=== PATIENT | female | born 1945 | race Caucasian/White ===

== ENCOUNTER 2016-10-06 13:30 | Observation (INO) | payer MEDICARE ==
[~2016-10-06] VITALS: Ht 170.2 cm; Wt 83.7 kg
--- NOTE | ~2016-10-06 | ECHO ---
Transthoracic Echocardiography Report (TTE) Demographics Patient Name MEGHNA GONZALEZ Date of Study 10/07/2016 Patient Number [id number] Visit Number [id number] Date of 1945 Room Number G6324 Accession Number [id number] Gender Female Age 71 year(s) Referring Bertha Goldsmith Reverse Unit Operator Doreen Catherine Physician [facility] Reji Osman Physician Interpreting Zheng Felix MD Neighborhood Worker Physician Supervising Ordering Physician Bertha Goldsmith MD/SRIDEVI MARES Nurse Stress Director Of Diversity And Inclusion Conclusions Contractility Score Summary Normal Left Ventricular contractility was noted. Summary The estimated left ventricular ejection fraction is 70-75%. The left ventricle is normal in size . Moderate concentric left ventricular hypertrophy. Diastolic assessment reveals Grade I diastolic dysfunction. The interventricular septum is flattened which is consistent with right ventricular pressure / and or volume overload. Near mid-cavity obliteration with increased gradients seen in the left ventricle. Mildly dilated right ventricle. Mildly reduced right ventricular function. Mild-moderate tricuspid regurgitation by color Doppler. There is severe pulmonary hypertension. The pulmonary pressure (RVSP) is 82 mmHg. Trivial global pericardial effusion. Procedure Type of Study TTE procedure:2D Echocardiogram, M-Mode, Doppler , Color Doppler. Procedure Date Date: 10/07/2016 Start: 07:21 AM Study Location: Inpatient Portable Technical Quality: Limited visualization due to poor acoustical window. Indications:Shortness of breath. Additional Indications:COPD Appropriate Use Criteria: 9 Patient Status: Routine HR: 105 bpm BP: 120/63 mmHg M-Mode/2D Measurements LV Diastolic Dimension: 3.13 cm LV Systolic Dimension: 1.95 cm LV Septum Diastolic: 1.45 cm LV PW Systolic: 0.68 cm LV PW Diastolic: 1.47 cm AO Root Dimension: 3.2 cm Cardiac Output: 8.91 l/min LA Dimension: 3.5 cm LVOT: 2.1 cm LVOT VTI: 24.5 cm RV Base: 4.03 cm LV Stroke volume: 84.82 ml RV Length: 6.49 cm TAPSE: 1.3 cm TDI-S': 15.6 cm/s Doppler Measurements AV Peak Velocity: 1.32 m/s MV Peak E-Wave: 0.52 m/s AV Peak Gradient: 6.97 mmHg MV Peak A-Wave: 1.04 m/s AV Mean Gradient: 5 mmHg MV E/A Ratio: 0.5 LVOT Peak Velocity: 1.3 m/s MV P1/2t: 48 msec TR Gradient:78.85 mmHg PV Peak Velocity: 0.75 m/s Estimated RAP:3 mmHg PV Peak Gradient: 2.26 mmHg Estimated RVSP: 82 mmHg Estimated PASP: 81.85 mmHg E' Septal Velocity: 0.06 m/s A' Septal Velocity: 0.12 m/s E' Lateral Velocity: 0.06 m/s A' Lateral Velocity: 0.12 m/s Findings Left Ventricle The left ventricle is normal in size . Moderate concentric left ventricular hypertrophy. Diastolic assessment reveals Grade I diastolic dysfunction. The interventricular septum is flattened which is consistent with right ventricular pressure / and or volume overload. Near mid-cavity obliteration with increased gradients seen in the left ventricle. Right Ventricle Mildly dilated right ventricle. Mildly reduced right ventricular function. Left Atrium Normal left atrial size. Right Atrium Normal right atrial size. IVC measures 2.04 cm with inspiratory collapse. Mitral Valve Trivial mitral regurgitation by color Doppler. Aortic Valve Normal aortic valve structure and function. Tricuspid Valve Mild-moderate tricuspid regurgitation by color Doppler. There is severe pulmonary hypertension. The pulmonary pressure (RVSP) is 82 mmHg. Pulmonic Valve Mild pulmonic valve regurgitation by color Doppler. Pericardial Effusion Small posterior pericardial effusion. Miscellaneous Visualized portions of the aortic root and ascending aorta appear normal in size. Pleural Effusion No evidence of pleural effusion. Contractility Score LV regional wall motion:(0-Non visualized 1-Normal 2-Hypokinesis 3-Akinesis 4-Dyskinesis 5-Aneurysm) Signature dtt: Isidro Calzada (cardio) dtd: 10/07/16 0721 Physician Self Edit
--- NOTE | ~2016-10-06 | ER ---
PATIENT'S NAME: MEGHNA FIGUEROA [facility] AGE: 71 Y [address] ROOM: [place] [address] LOCATION: GPCU ADMIT DATE: 10/06/2016 ER/Outpatient Report DISCHARGE DATE: 10/07/2016 FAMILY PHYSICIAN: Fernanda Navarro MD ATTENDING PHYSICIAN: Fernanda Navarro PRINCIPAL DIAGNOSIS: Acute on chronic hypoxic respiratory failure. SECONDARY DIAGNOSES: 1. Right pleural effusion secondary to possible lung cancer recurrence. 2. A 7-cm infrarenal abdominal aortic aneurysm. 3. Chronic obstructive pulmonary disease. 4. Emphysema. 5. Hypertension. 6. Hyperlipidemia. 7. Diabetes mellitus, type 2. 8. History of lung cancer. 9. History of cerebrovascular accident. C D AREA SUPERVISOR: Pulmonology and Respiratory Therapy. PROCEDURE: Thoracentesis, removed 1 L dejah colored pleural fluid and sent for labs. HOSPITAL COURSE: Meghna Figueroa is a 71-year-old transferred from [place] [facility] to [facility] due to increasing shortness of breath. She was found to have a right-sided pleural effusion and chest x-ray at [place] [facility]. Upon arrival, a CT PE was obtained and showed no blood clots, but it did show mediastinal and right hilar lymphadenopathy, large infrarenal abdominal aortic aneurysm at least 7 cm. The abdominal aortic aneurysm was not fully imaged. Dr. Oscar from Pulmonology was consulted. He performed a thoracentesis and removed 1 L of dejah colored fluid. This specimen was sent for labs, which were pending upon discharge. DISCHARGE MEDICATIONS: 1. Amlodipine besylate 5 mg once daily. 2. Atorvastatin 40 mg once daily. 3. Clopidogrel 75 mg once daily. 4. Aspirin 81 mg once daily. 5. Metoprolol tartrate 50 mg twice daily. 6. Sertraline 100 mg once daily. 7. Ipratropium albuterol nebulizer 3 times daily. PATIENT'S NAME: MEGHNA FIGUEROA [facility] AGE: 71 Y [address] ROOM: [place] [address] LOCATION: GPCU ADMIT DATE: 10/06/2016 ER/Outpatient Report DISCHARGE DATE: 10/07/2016 FAMILY PHYSICIAN: Fernanda Navarro MD ATTENDING PHYSICIAN: Fernanda Navarro 8. Fluticasone/vilanterol 100/25 mcg one inhalation once daily. 9. Acetaminophen 650 every 4 hours as needed. 10. Metformin 250 mg twice daily. 11. CoQ10 200 mg once daily. 12. Oxygen. 13. Furosemide 40 mg as needed for swelling. 14. Prednisone taper that she is to finish. This was prescribed before her admission. DIET: Diabetic diet. ACTIVITY: No restrictions. CONDITION: Fair. DISPOSITION: 1. Meghna is discharged home today with followup with Dr. Oscar in 4 to 7 days. If the results from her pleural fluid show no signs of cancer, he will perform a bronchoscopy for a biopsy. If he finds that she does have a recurrence for cancer, he will refer her to Dr. Hodgson her oncologist, for further workup. If cancer is ruled out, she will see Dr. Hodgson just for regular check up. 2. Meghna has an appointment with her PCP, Dr. Fernanda Navarro, in November for regular checkup. She will keep that, but will be seen sooner if needed. BETTY KIRK, MEDICAL STUDENT FOR FERNANDA NAVARRO MD AT/modl /[id number] d: 10/07/16 1000 t: 10/08/16 1405, OUTPATIENT REPORT
--- NOTE | ~2016-10-06 | HP ---
PATIENT'S NAME: MEGHNA FIGUEROA [facility] AGE: 71 Y [address] ROOM: [place] [address] LOCATION: GPCU ADMIT DATE: 10/06/2016 History & Physical DISCHARGE DATE: FAMILY PHYSICIAN: Fernanda Navarro MD ATTENDING PHYSICIAN: Fernanda Navarro DATE OF SERVICE: ADMITTING DIAGNOSIS: [id number] hypoxic respiratory failure. SECONDARY DIAGNOSES: 1. Chronic obstructive pulmonary disease. 2. Emphysema. 3. Hypertension. 4. Hyperlipidemia. 5. Diabetes mellitus type 2. 6. History of lung cancer. 7. History of cerebrovascular accident. CONSULTATION: Pulmonology, Respiratory Therapy. HISTORY OF PRESENT ILLNESS: Meghna Figueroa is a 71-year-old female, who transferred to [facility] from [place] [facility] for increasing shortness of breath and right pleural effusion. At baseline, she is on 3 L O2 nasal cannula since July after having pneumonia. Since Thursday, she noticed she was having increasing shortness of breath and could not catch her breath. A chest x-ray done at the [place] ED showed right pleural effusion and suspected right lower lung base pneumonia. Due to these findings and her history of lung cancer, she was transferred to [facility] PCU for further workup. Upon admission, she was on 10 L O2 nasal cannula. Pulmonology and Respiratory were consulted. Dr. Oscar from Pulmonology tentatively plans to do a thoracentesis with subsequent workup on the pleural effusion fluid. For the rest of her review of systems, she does endorse a bit of a headache. She denies chest pain, abdominal pain, diarrhea, constipation, or dysuria. HOME MEDICATIONS: 1. Acetaminophen 650 every 4 hours as needed for pain. 2. Amlodipine besylate tablet 5 mg once daily. 3. Aspirin 81 mg once daily. 4. Atorvastatin 40 mg once daily. 5. Clopidogrel 75 mg once daily. 6. Fluticasone/vilanterol 100/25 mcg inhaled once daily. PATIENT'S NAME: MEGHNA FIGUEROA [facility] AGE: 71 Y [address] ROOM: [place] [address] LOCATION: GPCU ADMIT DATE: 10/06/2016 History & Physical DISCHARGE DATE: FAMILY PHYSICIAN: Fernanda Navarro MD ATTENDING PHYSICIAN: Fernanda Navarro 7. Furosemide 40 mg as needed for swelling. 8. Ipratropium and albuterol sulfate nebulizer 3 times daily. 9. Metformin 250 mg twice daily. 10. Metoprolol 50 mg twice daily. 11. Oxygen. 12. Sertraline 100 mg once daily. 13. CoQ10 capsule 200 mg once daily. PHYSICAL EXAMINATION: GENERAL: Resting in bed, sitting up with increased work of breathing. CARDIOVASCULAR: Regular rate and rhythm, no murmurs. PULMONARY: Increased work of breathing noted, use of accessory muscles noted. Prolonged expirations bilaterally. No breath sounds heard in the right lower lung base. Right lower lung base dull to percussion. GI: Positive bowel sounds, nontender. EXTREMITIES: Mild dependent edema. LABORATORY DATA: CK-MB 3.2, sodium 144, potassium 3.8, chloride 108, CO2 of 26, glucose 211, BUN 29, creatinine 0.76, total protein 5.8, albumin 3.4, total bilirubin 0.7, alkaline phosphatase 50, AST 19, ALT 11. White blood cells 14.8, hemoglobin 14.2, platelets 232, neutrophils 90%. ABG ph 7.39, ABG pCO2 of 39, ABG pO2 of 62. DIET: N.p.o. until after thoracentesis. ACTIVITY: Up with assistance. ASSESSMENT AND PLAN: 1. We consulted Pulmonology to help work up the etiology of her new right- sided pleural effusion, especially with her history of lung cancer. Differential diagnosis includes pneumonia versus lung cancer recurrence. She did receive 125 mg of methylprednisolone in the [place] ED. Depending on the results of her pleural fluid, we will consider appropriate antibiotics versus steroids. 2. We continued her home medications except for metformin, CoQ10, and aspirin. Dr. Oscar from Pulmonology said that continuing her clopidogrel was fine for the thoracentesis. We put her on glucose checks in the morning and at night with a mild insulin aspart sliding scale. 3. She is DNR/DNI. PATIENT'S NAME: MEGHNA FIGUEROA [facility] AGE: 71 Y [address] ROOM: [place] [address] LOCATION: GPCU ADMIT DATE: 10/06/2016 History & Physical DISCHARGE DATE: FAMILY PHYSICIAN: Fernanda Navarro MD ATTENDING PHYSICIAN: Fernanda Navarro BETTY KIRK, MEDICAL STUDENT FOR FERNANDA NAVARRO MD AT/modl /[id number] D: [id number] T: [id number] HISTORY & PHYSICAL
--- NOTE | ~2016-10-06 | OR ---
PATIENT'S NAME: MEGHNA GONZALEZ [facility] AGE: 71 Y [address] ROOM: [place] [address] LOCATION: GPCU ADMIT DATE: 10/06/2016 OR/Procedure Report DISCHARGE DATE: FAMILY PHYSICIAN: Juice Stone MD ATTENDING PHYSICIAN: Juice Stone SURGEON: Juice Oscar MD NET APPLICATIONS DEVELOPER: DATE OF PROCEDURE: 10/06/2016 PROCEDURE PERFORMED: Right thoracentesis. PREOPERATIVE DIAGNOSIS: Pleural effusion. POSTOPERATIVE DIAGNOSIS: Pleural effusion. OPERATIVE SUMMARY: After obtaining informed consent, we proceeded. Right lower chest was prepped and draped sterilely, and fluid was localized by percussion. Topical anesthesia was obtained with 1% lidocaine. Thoracentesis catheter was then used to enter the pleural space. 1000 mL of dejah colored, relatively clear fluid was removed without difficulty. The patient tolerated the procedure well. There were no complications. JUICE OSCAR MD DEC/modl /[id number] d: 10/07/16 0007 t: 10/10/16 1018, OPERATIVE SUMMARY
[~2016-10-06 13:30] MED LIST: ASPIRIN LO-DOSE81 MG PO; ATORVASTATIN CA40 MG PO; CO Q-10200 MG PO; DELTASONE20 MG PO; DUONEB INH; GLUCOPHAGE500 MG PO; LEVAQUIN500 MG PO; LOPRESSOR50 MG PO; NORVASC5 MG PO; OXYGEN M-15 INH; PLAVIX75 MG PO; TYLENOL325 MG PO; ZOLOFT100 MG PO
--- NOTE | 2016-10-06 14:37 | NUR ---
PT is 71 y/o female admit for right pleural effusion for . Allergy to procaine. Red and yellow bracelet on. Pt alert and oriented x3. Hx CVA,hx L)hand weakness,lung CA,emphysema,htn,hypercholest,COPD,pneumonia x3,incontinence urine,depression,anxiety,DM. Pt states she became so short of breath in her bathroom this am she couldn't even get dressed and had to call the unit this am. Pt wishes to be DNR. Resides at home with her . Pulmonology to consult. Pt on O2 per mask.
[2016-10-06] MEDS ORDERED: LASIX40 MG PO (15:41)
[2016-10-06] MEDS ORDERED: BREO ELLIPTA 11 EACH INH (15:46)
[2016-10-06 16:01] LABS: INR - (THERAPEUTIC) 1.07 (0.92-1.07); PROTIME 11.2 SECONDS (9.8-11.4)
--- NOTE | 2016-10-06 20:10 | NUR ---
THORACENTISIS DONE TODAY BY DR. ROSALES. 1 LITER OF FLUID REMOVED, BROWNISH RED FLUID WAS REMOVED DURING THORACENTESIS. PATIENT ARRIVED ON 10 LI SIMPLE MASK AND WAS WEANED DOWN TO 6 LITERS NC AFTER THORACENTESIS.
--- NOTE | 2016-10-07 04:59 | NUR ---
Significant Event: Patient alert and oriented x3. HR 96-116. SBP 98-142. On 6L per NC. SOB with activity and talking. All other vital signs stable. Dressing to thoracentisis site D/I. Slight bloody drainage. CT done per PE protocal after elevated D-Dimer was negative for PE. 80mg IV Lasix given x1. 1000ml uop as of now. Up with stand-by assist to bedside commode. Calm and cooperative with all cares. Follow up: Will continue to monitor respiratory status.
[2016-10-07 06:13] LABS: BASOPHIL % 0.2 %; HEMATOCRIT 43.7 % (33.0-46.0); HEMOGLOBIN 13.4 g/dL (10.0-15.0); IMMATURE GRANULOCYTE # 0.1 K/uL (0.0-0.3); IMMATURE GRANULOCYTE % 1.1 %; LYMPHOCYTE # 0.6 K/uL (0.8-4.0); LYMPHOCYTE % 5.7 %; MCH 28.8 pg (27.0-34.0); MCHC 30.7 gm/dL (32.0-36.5); MONOCYTE # 1.5 K/uL (0.0-1.0); MONOCYTE % 13.4 %; NEUTROPHIL # (ANC) 8.7 K/uL (1.8-7.8); NEUTROPHIL % 79.6 %; NRBC % 0 /100WBC (0-0.00); RBC 4.65 M/uL (3.50-5.50); WBC 10.9 K/uL (4.0-11.0)
[2016-10-07 06:16] LABS: PLATELET COUNT 225 K/uL (150-450); RDW-CV 16.2 % (11.9-14.6)
[2016-10-07 06:25] LABS: BLOOD UREA NITROGEN 29 mg/dL (6-24); CALCIUM 8.1 mg/dL (8.5-10.5); CHLORIDE 106 mMol/L (96-110); CO2 31 mMol/L (22-32); CREATININE 0.9 mg/dL (0.5-1.1); ESTIMATED GFR (MDRD EQUATION) > 60
[2016-10-07 06:26] LABS: ANION GAP 13.7 (10.0-19.0); POTASSIUM 3.7 mMol/L (3.7-5.1); SODIUM 147 mMol/L (135-145)
--- NOTE | 2016-10-07 12:26 | NUR ---
DISCHARGE SUMMARY: Pt A&Ox3. Pleasant with cares. Sinus tachy, BP 107/54. Afebrile. O2 4L NC. Lungs to right side are dim throughout, left side clear and diminished. Ecchymotic areas to bilateral arms/hands-multiple IV sticks. Gauze and tegaderm to thoracentesis site on upper right side of back. Pt D/C to home-family assisted with transfer to [place]. D/C at 1115. Pt IV D/C and final tele strip ran. Pleural Effusion education provided.
== END 2016-10-07 11:30 | disposition disaster alternative care site (69) ==
LOC: GPCU 13:54
PROVIDERS: ADMIT Obstetrics & Gynecology Obstetrics
PROC: 0W993ZZ Drainage of Right Pleural Cavity, Percutaneous Approach (ICD-10-PCS; principal; 2016-10-06)
DX: J90 Pleural effusion, not elsewhere classified (principal); R09.1 Pleurisy; J96.21 Acute and chronic respiratory failure with hypoxia; J44.9 Chronic obstructive pulmonary disease, unspecified; J45.909 Unspecified asthma, uncomplicated; I10 Essential (primary) hypertension; E11.9 Type 2 diabetes mellitus without complications; E78.5 Hyperlipidemia, unspecified; Z86.73 Personal history of transient ischemic attack (TIA), and cerebral infarction without residual deficits; Z85.118 Personal history of other malignant neoplasm of bronchus and lung; Z79.82 Long term (current) use of aspirin; Z79.51 Long term (current) use of inhaled steroids; Z79.84 Long term (current) use of oral hypoglycemic drugs; Z79.899 Other long term (current) drug therapy
CPT/HCPCS: A9270; G0378; J1940; Q9967